=== PATIENT | female | born 1950 | race Caucasian/White ===

== ENCOUNTER → 2016-05-02 | Outpatient (REF) | payer OTHER ==
[2016-05-02 12:07] LABS: BASO # 0.1 K/mm3 (0.0-0.2); BASO % 0.9 % (0.0-1.0); EOS # 0.2 K/mm3 (0.0-0.50); EOS % 2.1 % (0.0-3.0); LARGE UNSTAINED CELL # 0.2 K/mm3 (0.0-0.4); LARGE UNSTAINED CELL % 2.9 % (0.0-4.0); LYMPH # 2.5 K/mm3 (1.5-4.5); LYMPH % 32.2 % (24.0-44.0); MEAN CORPUSCULAR HEMOGLOBIN 29.3 pg (27.0-33.0); MEAN CORPUSCULAR HGB CONC 32.1 g/dl (32.0-36.5); MEAN CORPUSCULAR VOLUME 91.2 fl (80.0-96.0); MONO # 0.5 K/mm3 (0.0-0.8); MONO % 5.8 % (0.0-5.0); NEUTROPHILS # 4.4 K/mm3 (1.8-7.7); NEUTROPHILS % 56.1 % (36.0-66.0); PLATELET COUNT, AUTOMATED 274 k/mm3 (150-450); RED CELL DISTRIBUTION WIDTH 13.3 % (11.5-14.5); WHITE BLOOD COUNT 7.9 K/mm3 (4.0-10.0)
[2016-05-02 12:16] LABS: ALBUMIN 3.6 GM/DL (3.2-5.2); ALBUMIN/GLOBULIN RATIO 1.24 (1.00-1.93); ALKALINE PHOSPHATASE 77 U/L (45-117); ALT/SGPT 20 U/L (12-78); ANION GAP 7 MEQ/L (8-16); AST/SGOT 14 U/L (15-37); BILIRUBIN,TOTAL 0.3 MG/DL (0.2-1.0); BLOOD UREA NITROGEN 15 MG/DL (7-18); CALCIUM LEVEL 8.6 MG/DL (8.8-10.2); CARBON DIOXIDE LEVEL 30 MEQ/L (21-32); CHLORIDE LEVEL 105 MEQ/L (98-107); CREATININE FOR GFR 0.56 MG/DL (0.55-1.02); GLOMERULAR FILTRATION RATE > 60.0 (>45); GLUCOSE, FASTING 86 MG/DL (80-110); POTASSIUM SERUM 4.2 MEQ/L (3.5-5.1); SODIUM LEVEL 142 MEQ/L (136-145); TOTAL PROTEIN 6.5 GM/DL (6.4-8.2)
== END ==
LOC: M LABDRAW1 10:54
PROVIDERS: ATTEND Orthopaedic Surgery
DX: M54.5 Low back pain (principal)

== ENCOUNTER → 2018-01-16 | Outpatient (REF) | payer OTHER ==
[2018-01-16 19:17] LABS: BF MONONUCLEAR CELL % 65.9 % (0-0); BF POLYMORPHONUCLEAR CELL % 34.1 % (0-0); RBC BODY FLUID 69 10^3/uL (<2)
[2018-01-16 19:19] LABS: APPEARANCE, BODY FLUID CLOUDY (CLEAR); BF DIFF IF INDICATED? YES (NO); SOURCE, BODY FLUID OTHER; SYNOVIAL FLUID COLOR RED (YELLOW); WBC BODY FLUID 820 /uL (0-10)
[2018-01-16 19:42] LABS: CRYSTALS, BODY FLUID NONE SEEN (NONE SEEN); SOURCE, BODY FLUID CRYSTALS RT ELBOW; SOURCE, BODY FLUID URIC ACID RT ELBOW; URIC ACID, BODY FLUID 2.6 MG/DL (NOT ESTABLISHED)
[2018-01-17 08:58] LABS: BODY FLUID RHEUMATOID SCREEN NEGATIVE (NEGATIVE)
== END ==
LOC: M LAB REF 18:08
DX: M70.21 Olecranon bursitis, right elbow (principal)
CPT/HCPCS: 84560

== ENCOUNTER → 2022-10-04 | Outpatient (CLI) | payer MEDICARE, OTHER ==
[~2022-10-04] MED LIST: ISOVUE-300 61% 100ML VIAL ONE; LIDOCAINE 1% MDV 20ML VIAL ONE; methylPREDNISolone SUSP 40MG/ML 1ML VIAL (DEPO MEDROL) ONE
== END ==
LOC: M PLAIMG 15:26
PROVIDERS: ATTEND Physician Assistant Surgical
DX: M19.012 Primary osteoarthritis, left shoulder (principal)
CPT/HCPCS: 20610; 77002; J1030; Q9967

== ENCOUNTER → 2022-11-20 | Outpatient (CLI) | payer MEDICARE, OTHER | LOC: M PLARAD 12:03 | PROVIDERS: ATTEND Internal Medicine Pulmonary Disease | DX: R91.8 Other nonspecific abnormal finding of lung field (principal); I65.23 Occlusion and stenosis of bilateral carotid arteries; I70.0 Atherosclerosis of aorta; I25.10 Atherosclerotic heart disease of native coronary artery without angina pectoris; K80.20 Calculus of gallbladder without cholecystitis without obstruction; Z96.642 Presence of left artificial hip joint | CPT/HCPCS: 78815; A9552 ==

== ENCOUNTER 2023-06-19 10:45 | Day surgery (SDC) | payer MEDICARE, OTHER ==
[~2023-06-19] VITALS: Ht 157.5 cm; Wt 78.7 kg
[~2023-06-19 10:45] MED LIST changes: +BREO1INH3 INH; +CLAR10CA3 PO; +D 101000 PO; -ISOVUE-300 61% 100ML VIAL ONE; -LIDOCAINE 1% MDV 20ML VIAL ONE; +MUCI600T31 PO; +PRED10TA2 PO; +ROSU20TA61 PO; +TIOT18INH INH; +VALS1TAB67 PO; -methylPREDNISolone SUSP 40MG/ML 1ML VIAL (DEPO MEDROL) ONE
[2023-06-19] MEDS: PROPARACAINE 0.5% OPHTH SOL 15ML OS ONE (11:17)
[2023-06-19] MEDS: ATROPINE SULFATE 1% OPHTH SOLN 2ML BTL OS SCH (11:17)
[2023-06-19] MEDS: TROPICAMIDE 1% OPHTH SOLN 15ML OS SCH (11:18)
[2023-06-19] MEDS: OFLOXACIN 0.3 % (OCUFLOX) OPTH SOL 5ML OS SCH (11:18)
[2023-06-19] MEDS: PHENYLEPHRINE 2.5% OPHTH SOL 2ML OS SCH (11:18)
[2023-06-19] MEDS ORDERED: fentaNYL 100 MCG/2 ML INJECTION As Ordered ONE (12:17)
[2023-06-19] MEDS ORDERED: MIDAZOLAM INJ 2MG/2ML VIAL As Ordered ONE (12:17)
[2023-06-19] MEDS: CEFUROXIME 1MG/0.1ML INTRACAMERAL INJ As Ordered ONE (12:18)
[2023-06-19] MEDS: BSS IRR 500ML/OMIDRIA 4ML IRR BAG (OR ONLY) As Ordered ONE (12:18)
[2023-06-19] MEDS: LIDOCAINE 1% SDV 5ML VIAL As Ordered ONE (12:18)
[2023-06-19 12:32] VITALS: BP 172/86; TEMP 97.7; O2SAT 98
== END 2023-06-19 12:54 | disposition home or self-care (01) ==
LOC: M SDC 10:45
PROVIDERS: ATTEND Ophthalmology
DX: H25.12 Age-related nuclear cataract, left eye (principal); G47.9 Sleep disorder, unspecified; Z79.899 Other long term (current) drug therapy
CPT/HCPCS: 66984; J0697; J1097; J2250; J3010; V2632

== ENCOUNTER 2023-07-23 08:25 | Day surgery (SDC) | payer MEDICARE ==
[~2023-07-23] VITALS: Ht 157.5 cm; Wt 80.7 kg
[~2023-07-23 08:25] MED LIST changes: +LR 1,000 ML IV SCH; +MIDAZOLAM INJ 2MG/2ML VIAL As Ordered ONE; +fentaNYL 100 MCG/2 ML INJECTION As Ordered ONE
[2023-07-23] MEDS: PHENYLEPHRINE 2.5% OPHTH SOL 2ML OD SCH (09:01)
[2023-07-23] MEDS: FLURBIPROFEN 0.03% OPHTH SOLN 2.5 ML OD SCH (09:01)
[2023-07-23] MEDS: ATROPINE SULFATE 1% OPHTH SOLN 2ML BTL OD SCH (09:01)
[2023-07-23] MEDS: TETRACAINE 0.5% OPHTH SOLN 4ML OD SCH (09:01)
[2023-07-23] MEDS ORDERED: hydrALAZINE 20MG/ML 1ML VIAL As Ordered ONE (10:18)
[2023-07-23] MEDS: LIDOCAINE 1% SDV 5ML VIAL As Ordered ONE (10:32)
[2023-07-23] MEDS: CEFUROXIME 1MG/0.1ML INTRACAMERAL INJ As Ordered ONE (10:33)
[2023-07-23 10:53] VITALS: BP 166/86; TEMP 97.1; O2SAT 97
== END 2023-07-23 11:10 | disposition home or self-care (01) ==
LOC: M SDC 08:25
PROVIDERS: ATTEND Ophthalmology
DX: H25.11 Age-related nuclear cataract, right eye (principal); I10 Essential (primary) hypertension; J44.9 Chronic obstructive pulmonary disease, unspecified; E78.00 Pure hypercholesterolemia, unspecified; R01.1 Cardiac murmur, unspecified; Z79.899 Other long term (current) drug therapy; Z79.51 Long term (current) use of inhaled steroids; Z79.52 Long term (current) use of systemic steroids; Z86.718 Personal history of other venous thrombosis and embolism
CPT/HCPCS: 66984; J0360; J0697; J2250; J3010; V2632

== ENCOUNTER → 2023-08-08 | Outpatient (REF) | payer MEDICARE ==
[~2023-08-08] MED LIST changes: -LR 1,000 ML IV SCH; -MIDAZOLAM INJ 2MG/2ML VIAL As Ordered ONE; -fentaNYL 100 MCG/2 ML INJECTION As Ordered ONE
== END ==
LOC: M LAB REF 12:17
PROVIDERS: ATTEND Internal Medicine Pulmonary Disease
DX: J44.9 Chronic obstructive pulmonary disease, unspecified (principal)